=== PATIENT | male | born 1985 | race Two or more races ===

== ENCOUNTER 2020-02-10 13:18 | Emergency (ER) | payer OTHER ==
[~2020-02-10] VITALS: Ht 172.7 cm; Wt 75.0 kg
[2020-02-10 13:33] VITALS: BP 152/85
[2020-02-10] MEDS ORDERED: IBUPROFEN 200 MG TABLET. PO ONE ×2 (13:45→13:46)
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
[2020-02-10 13:55] LABS: BILIRUBIN,URINE NEGATIVE (NEG); CLARITY,URINE CLEAR; COLOR,URINE YELLOW; NITRITE,URINE NEGATIVE (NEG); PH,URINE 7.5 (<5.0-8.0); PROTEIN,URINE NEGATIVE (NEG-TRACE)
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
[2020-02-10 14:12] LABS: AMORPHOUS SEDIMENT,UR PRESENT /HPF; BACTERIA,URINE 0 /HPF (0-FEW); RBC,URINE OCC /HPF (0-2); SPERM,URINE PRESENT /HPF; WBC,URINE OCC /HPF (0-4)
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
[2020-02-10] MEDS ORDERED: IBUP-1007 PO (14:29)
== END 2020-02-10 14:44 | disposition home or self-care (01) ==
LOC: ER 13:18
DX: S27.321A Contusion of lung, unilateral, initial encounter (principal); M54.5 Low back pain; R07.81 Pleurodynia; V49.9XXA Car occupant (driver) (passenger) injured in unspecified traffic accident, initial encounter; Y93.89 Activity, other specified; Y92.413 State road as the place of occurrence of the external cause; Y99.8 Other external cause status
CPT/HCPCS: 71101; 72131; 81001; 99285